=== PATIENT | female | born 1990 | race Caucasian/White ===

== ENCOUNTER 2017-03-19 14:34 | Inpatient (IN) | payer OTHER ==
[~2017-03-19] VITALS: Ht 160 cm; Wt 77.1 kg
[~2017-03-19 14:34] MED LIST: AMOX500C PO; PREN1CAP30 PO
[2017-03-19] MEDS ORDERED: SODIUM CHLORIDE 0.9% FLUSH 10 ML FLUSH IV FLUSH PRN (16:30)
[2017-03-19] MEDS ORDERED: ACETAMINOPHEN 325 MG TAB PO PRN (16:30)
[2017-03-19] MEDS ORDERED: ZOLPIDEM TARTRATE 5 MG TAB PO PRN (16:30)
[2017-03-19 17:40] LABS: AUTOMATED NEUTROPHIL # 6.1 TH/MM3 (1.8-7.7); BASOPHIL % 0.4 % (0.0-2.0); EOSINOPHIL % 0.3 % (0.0-4.0); HEMATOCRIT 30.6 % (35.0-46.0); LYMPH % 17.7 % (9.0-44.0); LYMPHOCYTE # 1.4 TH/MM3 (1.0-4.8); MEAN CELL VOLUME 77.4 FL (80.0-100.0); MEAN CORPUSCULAR HEMOGLOBIN 24.1 PG (27.0-34.0); MEAN CORPUSCULAR HGB CONC 31.2 % (32.0-36.0); MONO % 4.6 % (0.0-8.0); PLATELET COUNT 211 TH/MM3 (150-450); RED BLOOD COUNT 3.96 MIL/MM3 (4.00-5.30); RED CELL DISTRIBUTION WIDTH 15.7 % (11.6-17.2); WHITE BLOOD COUNT 7.9 TH/MM3 (4.0-11.0)
[2017-03-19 17:46] LABS: HEMO FLAGS AUTO DIFF
[2017-03-19 18:06] LABS: BACTERIA, URINE OCC /hpf; BLOOD, URINE NEG (NEG); COMMENT (UR) CULT NOT INDICATED; CULTURE IF INDICATED CULT NOT INDICATED; GLUCOSE,URINE NEG (NEG); KETONE, URINE NEG (NEG); MUCUS URINE FEW /lpf (OCC); NITRITE,URINE NEG (NEG); PH, URINE 7.5 (5.0-8.5); SQUAMOUS EPITHELIAL CELL URINE 4 /hpf (0-5); URINE COLOR YELLOW (YELLW/STRAW)
[2017-03-19 18:59] LABS: SCAN/DIFF AUTO DIFF CONFIRMED
--- NOTE | 2017-03-19 19:59 | HHI.HP ---
HPI Chief Complaint Low fluid Date Seen: March 19, 2017 Travel History International Travel<30 Days: No Contact w/Intl Traveler<30Days: No History of Present Illness HPI This is a 26y/o at 38w who presented to her routine OB visit today. Due to lapse of care and ultrasound was performed for well being, LUIS ENRIQUE was 0, fetus was breech, pt was sent to the [facility] for evaluation. Pt denies vaginal bleeding or leakage of fluid with reports of active movements. She is concerned about the weight and would like to wait to deliver the baby. [facility], complicated by: 1. late care at 14 w 2. lapse of care, moved to [facility] for a family emergency and did not receive care, No care from 14-35w 3. Previous c/s times 1 4. Breech presenting fetus 5. Rubella non-immune 6. Anemia affection 9.05/04 Para: 1 : 3 Miscarriage: 1 History Past Medical History Medical History: Denies Significant Hx Obstetric History Obstetric History 09/02/10 41.5w Primary c/s for NRFHT Male [id number] Past Surgical History Narrative Surgical C/s times 1 Family History Family History: Negative Social History Alcohol Use: No Tobacco Use: No Substance Abuse: No Allergies-Medications (Allergen,Severity, Reaction): Coded Allergies: No Known Allergies (Verified , 03/19/17) Home Meds Active Scripts Without A W/Fe Fum-Fe (Provida Dha 16-16-1.25-110 mg)1 Cap Cap1 Tab PO DAILY #30 BOTTLE Ref 11 Prov:Jessica Koch CNM [facility] 02/28/17 Discontinued Scripts Amoxicillin 500 Mg [id number] Mg PO TID #21 CAP Ref 21 Prov:James Emanuel MD 03/05/17 W/O A W/ Fe Asparto G (Prenate Pixie 10-0.6-0.4-200 mg)1 Cap Cap Sample #3 Prov:Jessica Koch CNM [facility] 10/02/16 Review of Systems Except as stated in HPI: all other systems reviewed are Neg Physical Exam Narrative GENERAL: Well-nourished, well-developed patient. SKIN: Warm and dry. HEAD: Normocephalic and atraumatic. EYES: No scleral icterus. No injection or drainage. ENT: No nasal drainage noted. Mucous membranes pink. Airway patent. NECK: Supple, trachea midline. No JVD. CARDIOVASCULAR: Regular rate and rhythm without murmurs, gallops, or rubs. RESPIRATORY: Breath sounds equal bilaterally. No accessory muscle use. BREASTS: Bilateral exam showed no masses , no retractions, no nipple discharge. ABDOMEN/GI: Abdomen soft, non-tender, bowel sounds present, no rebound, no guarding Fundal Height: 36 GENITOURINARY: VE deferred FHT's: Category: 1 Contractions: None EXTREMITIES: No cyanosis or edema. BACK: Nontender without obvious deformity. No CVA tenderness. NEUROLOGICAL: Awake and alert. Motor and sensory grossly within normal limits. Five out of 5 muscle strength in all muscle groups. Normal speech. Data Data Vital Signs Reviewed: Yes Orders Ob (2e) Additional Admit Info (03/19/17 14:46) Place In Observation (03/19/17 ) Diet Npo (03/19/17 Dinner) Vital Signs (Adult) MIGUEL [id number] AWAKE (03/19/17 16:26) Heart (03/19/17 16:26) Activity Oob Ad Sherice (03/19/17 16:26) Complete Blood Count With Diff (03/19/17 16:26) Urinalysis - C+S If Indicated (03/19/17 16:26) Acetaminophen (Tylenol) (03/19/17 16:30) Sodium Chloride 0.9% Flush (Ns Flush) (03/19/17 21:00) Sodium Chloride 0.9% Flush (Ns Flush) (03/19/17 16:30) Zolpidem (Ambien) (03/19/17 16:30) Specimen To Be Collected PRN (03/19/17 16:26) Labs Laboratory Tests Test 03/19/17 03/19/17 15:00 17:06 Urine Color YELLOW Urine Turbidity CLEAR Urine pH 7.5 Urine Specific [place] 1.005 Urine Protein NEG Urine Glucose (UA) NEG Urine Ketones NEG Urine Occult Blood NEG Urine Nitrite NEG Urine Bilirubin NEG Urine Urobilinogen LESS THAN 2.0 Urine Leukocyte Esterase SMALL Urine RBC LESS THAN 1 Urine WBC 1 Urine Squamous Epithelial 4 Cells Urine Bacteria OCC Urine Mucus FEW Urine Yeast (Budding) A Microscopic Urinalysis Comment CULT NOT INDICATED White Blood Count 7.9 Red Blood Count 3.96 Hemoglobin 9.6 Hematocrit 30.6 Mean Corpuscular Volume 77.4 Mean Corpuscular Hemoglobin 24.1 Mean Corpuscular Hemoglobin 31.2 Concent Red Cell Distribution Width 15.7 Platelet Count 211 Mean Platelet Volume 8.8 Neutrophils (%) (Auto) 77.0 Lymphocytes (%) (Auto) 17.7 Monocytes (%) (Auto) 4.6 Eosinophils (%) (Auto) 0.3 Basophils (%) (Auto) 0.4 Neutrophils # (Auto) 6.1 Lymphocytes # (Auto) 1.4 Monocytes # (Auto) 0.4 Eosinophils # (Auto) 0.0 Basophils # (Auto) 0.0 CBC Comment AUTO DIFF Differential Comment AUTO DIFF CONFIRMED Assessment/Plan Problem List: (1) Oligohydramnios in rodrigues in third trimester (2) 38 weeks gestation of (3) Insufficient care in third trimester Assessment and Plan 26y/o at 38w with LUIS ENRIQUE 0, breech presenting fetus, previous c/s times 1 with Anemia (). -records reviewed, well dated despite insufficient care -admit for c/s in AM -d/w pt and FOB, they have concerns about the weight and gestational age -counseled that due to SGA, per their report, and oligohydramnios there are 2 indications for delivery -will give IVF overnight and plan for c/s in AM -will do ultrasound in AM to check LUIS ENRIQUE -NPO -preop labs Hilda Cordova MD March 19, 2017 19:59
[2017-03-19 20:06] VITALS: BP 113/59; PULSE 65; RESP 18; TEMP 98.3
[2017-03-19 20:10] VITALS: PULSE 79
[2017-03-19] MEDS ORDERED: SODIUM CHLORIDE 0.9% FLUSH 10 ML FLUSH IV FLUSH SCH (21:00)
[2017-03-19 21:25] LABS: AMPHETAMINE, URINE NEG (NEG); BARBITURATES, URINE NEG (NEG); COCAINE, URINE NEG (NEG)
[2017-03-19 22:52] VITALS: BP 116/73; PULSE 102
[2017-03-19 23:00] VITALS: RESP 18
[2017-03-20] VITALS (12 sets, daily range): BP systolic 93–121; BP diastolic 51–68; PULSE 18–74; RESP 18; TEMP 97.5–98.4; O2SAT 98–100
[2017-03-20] MEDS ORDERED: CITRIC ACID-SODIUM CITRATE LIQ 30 ML UDC ONE (07:30)
[2017-03-20] MEDS ORDERED: LACTATED RINGER'S 1000 ML INJ 1,000 ML IV ONE (07:31)
[2017-03-20] MEDS ORDERED: OXYTOCIN 10 UNIT/ML AMP ONE (07:34)
--- NOTE | 2017-03-20 07:39 | PD.OB.ANTE ---
Subjective Diagnosis: (1) Oligohydramnios in rodrigues in third trimester Diagnosis: Principal (2) 38 weeks gestation of Diagnosis: Secondary (3) Insufficient care in third trimester Interval History This is a 26y/o at 38w1d who was admitted yesterday with LUIS ENRIQUE of 0 on clinic ultrasound. Pt non-compliant with care, only 3 visits. First visit at 14 weeks, 2nd visit at 34minutes. While placing an IV pt noted to have multiple needle sadler on her arms, admitted to dilaudid IV use. Pt declined c/s, but agreed to repeat LUIS ENRIQUE in am. Tracing Cat 1 overnight. LUIS ENRIQUE repeat now, still 0. Objective Vital Signs Vital Signs Date Time Temp Pulse Resp B/P Pulse Ox O2 Delivery O2 Flow Rate FiO2 03/19/17 23:00 18 03/19/17 22:52 102 116/73 03/19/17 20:10 79 03/19/17 20:06 98.3 65 18 113/59 Lab & Micro Results Test 03/19/17 03/19/17 03/19/17 15:00 17:06 21:10 Urine Color YELLOW Urine Turbidity CLEAR Urine pH 7.5 Urine Specific [place] 1.005 Urine Protein NEG mg/dL Urine Glucose (UA) NEG mg/dL Urine Ketones NEG mg/dL Urine Occult Blood NEG Urine Nitrite NEG Urine Bilirubin NEG Urine Urobilinogen LESS THAN 2.0 MG/DL Urine Leukocyte Esterase SMALL Urine RBC LESS THAN 1 /hpf Urine WBC 1 /hpf Urine Squamous Epithelial 4 /hpf Cells Urine Bacteria OCC /hpf Urine Mucus FEW /lpf Urine Yeast (Budding) A Microscopic Urinalysis Comment CULT NOT INDICATED Urine Opiates Screen POS Urine Barbiturates Screen NEG Urine Amphetamines Screen NEG Urine Benzodiazepines Screen NEG Urine Cocaine Screen NEG Urine Cannabinoids Screen NEG White Blood Count 7.9 TH/MM3 Red Blood Count 3.96 MIL/MM3 Hemoglobin 9.6 GM/DL Hematocrit 30.6 % Mean Corpuscular Volume 77.4 FL Mean Corpuscular Hemoglobin 24.1 PG Mean Corpuscular Hemoglobin 31.2 % Concent Red Cell Distribution Width 15.7 % Platelet Count 211 TH/MM3 Mean Platelet Volume 8.8 FL Neutrophils (%) (Auto) 77.0 % Lymphocytes (%) (Auto) 17.7 % Monocytes (%) (Auto) 4.6 % Eosinophils (%) (Auto) 0.3 % Basophils (%) (Auto) 0.4 % Neutrophils # (Auto) 6.1 TH/MM3 Lymphocytes # (Auto) 1.4 TH/MM3 Monocytes # (Auto) 0.4 TH/MM3 Eosinophils # (Auto) 0.0 TH/MM3 Basophils # (Auto) 0.0 TH/MM3 CBC Comment AUTO DIFF Differential Comment AUTO DIFF CONFIRMED Blood Type A POSITIVE Band and Hold HOLD CLOT IN BB Physical Exam GENERAL: Well-nourished, well-developed patient. CARDIOVASCULAR: Regular rate and rhythm without murmurs, gallops, or rubs. RESPIRATORY: Breath sounds equal bilaterally. No accessory muscle use. ABDOMEN/GI: Abdomen soft, non-tender. Fundus: 36w GENITOURINARY: External Genitalia: deferred Contractions: + irritability FHT's: Category: 1 EXTREMITIES: No cyanosis or edema, non-tender, without signs of DVT. Assessment and Plan Problem List: (1) Oligohydramnios in rodrigues in third trimester Status: Acute (2) 38 weeks gestation of Status: Acute (3) Insufficient care in third trimester Status: Acute Assessment and Plan 26y/o at 38w with LUIS ENRIQUE 0, breech presenting fetus, previous c/s times 1 with Anemia (9.6/30). -records reviewed, well dated despite insufficient care -LUIS ENRIQUE still 0 -Preop Now -d/w Dr. Morfin: HIV, HepC and maternal echo ordered; TAP recommended for post delivery -Case management consult placed, will set up "Healthy start" program -pt will f/u with Dr. Morfin as outpatient for Suboxone management -counseled about risks of surgery and what to expect, pt agreeable to surgery Hilda Cordova MD March 20, 2017 07:38
--- NOTE | 2017-03-20 07:46 | PD.OB.ANTE ---
Subjective Diagnosis: (1) Oligohydramnios in rodrigues in third trimester Diagnosis: Principal (2) 38 weeks gestation of (3) Insufficient care in third trimester Interval History Patient resting comfortably. She denies any signs/symptoms of opioid withdrawal. On further history, she admits to starting opioid use with oxycodone after high school. She then progressed to Dilaudid, up to 40mg IV daily. She also has been using Suboxone 1/2 tab occasionally. She states her last use was 2 days ago. She also smokes tobacco and drinks caffeine frequently. She states that she does not share needles and she injects herself. She states that she had others injecting for her several years ago. She is unsure if she has hepatis C. The father of the baby also uses IV Dilaudid and has been poorly compliant with rehabilitation services. They both express a desire to quit. Antepartum ROS: Reports: movement normal, Denies: New complaints, Loss of fluid, Vaginal bleeding, Contractions ( Bessie Lorenzo MD R2) Objective Vital Signs Vital Signs Date Time Temp Pulse Resp B/P Pulse Ox O2 Delivery O2 Flow Rate FiO2 03/19/17 23:00 18 03/19/17 22:52 102 116/73 03/19/17 20:10 79 03/19/17 20:06 98.3 65 18 113/59 Lab & Micro Results Test 03/19/17 03/19/17 03/19/17 15:00 17:06 21:10 Urine Color YELLOW Urine Turbidity CLEAR Urine pH 7.5 Urine Specific [place] 1.005 Urine Protein NEG mg/dL Urine Glucose (UA) NEG mg/dL Urine Ketones NEG mg/dL Urine Occult Blood NEG Urine Nitrite NEG Urine Bilirubin NEG Urine Urobilinogen LESS THAN 2.0 MG/DL Urine Leukocyte Esterase SMALL Urine RBC LESS THAN 1 /hpf Urine WBC 1 /hpf Urine Squamous Epithelial 4 /hpf Cells Urine Bacteria OCC /hpf Urine Mucus FEW /lpf Urine Yeast (Budding) A Microscopic Urinalysis Comment CULT NOT INDICATED Urine Opiates Screen POS Urine Barbiturates Screen NEG Urine Amphetamines Screen NEG Urine Benzodiazepines Screen NEG Urine Cocaine Screen NEG Urine Cannabinoids Screen NEG White Blood Count 7.9 TH/MM3 Red Blood Count 3.96 MIL/MM3 Hemoglobin 9.6 GM/DL Hematocrit 30.6 % Mean Corpuscular Volume 77.4 FL Mean Corpuscular Hemoglobin 24.1 PG Mean Corpuscular Hemoglobin 31.2 % Concent Red Cell Distribution Width 15.7 % Platelet Count 211 TH/MM3 Mean Platelet Volume 8.8 FL Neutrophils (%) (Auto) 77.0 % Lymphocytes (%) (Auto) 17.7 % Monocytes (%) (Auto) 4.6 % Eosinophils (%) (Auto) 0.3 % Basophils (%) (Auto) 0.4 % Neutrophils # (Auto) 6.1 TH/MM3 Lymphocytes # (Auto) 1.4 TH/MM3 Monocytes # (Auto) 0.4 TH/MM3 Eosinophils # (Auto) 0.0 TH/MM3 Basophils # (Auto) 0.0 TH/MM3 CBC Comment AUTO DIFF Differential Comment AUTO DIFF CONFIRMED Blood Type A POSITIVE Band and Hold HOLD CLOT IN BB Physical Exam GENERAL: Well-nourished, well-developed patient. CARDIOVASCULAR: Regular rate and rhythm without murmurs, gallops, or rubs. RESPIRATORY: Breath sounds equal bilaterally. No accessory muscle use. ABDOMEN/GI: Abdomen soft, non-tender. Fundus: 38 GENITOURINARY: External Genitalia: intact and normal in appearance Presentation: breech Membranes: intact Uterine Contractions: none FHT's: Category: I Baseline: 120 Reactive: + Variability: moderate Decels: none EXTREMITIES: No cyanosis or edema, non-tender, without signs of DVT. (Bessie Lorenzo MD R2) Assessment and Plan Problem List: (1) Oligohydramnios in rodrigues in third trimester Status: Acute (2) 38 weeks gestation of Status: Acute (3) Insufficient care in third trimester Status: Acute Assessment and Plan 26y/o at 38-1/7 weeks gestation with LUIS ENRIQUE 0, breech presenting fetus, previous c/s times 1 with Anemia (9.6/30). 1. Category I tracing, reassuring. 2. Oligohydramnios- LUIS ENRIQUE 0 on bedside US this AM 3. Records reviewed, well dated despite insufficient care 4. Repeat this am 5. History of Substance abuse including IV Dilaudid, caffeine, and tobacco seen and discussed with Dr. Cordova and Dr. Morfin at bedside (Bessie Lorenzo MD R2) Assessment and Plan Agree with above. Ordered: Echo, HIV, HepC, artist's manager full utox pending. (Hilda Cordova MD) Bessie Lorezno MD R2 March 20, 2017 07:46 Hilda Cordova MD March 20, 2017 09:48
[2017-03-20] MEDS ORDERED: LACTATED RINGER'S 1000 ML INJ 1,000 ML IV SCH ×2 (08:01→14:07)
[2017-03-20] MEDS ORDERED: ceFAZolin 2 GM PREMIX 50 ML IV SCH (08:45)
[2017-03-20 08:47] LABS: BLOOD GAS BASE EXCESS -3.1 mmol/L (-2-2); BLOOD GAS O2 HGB SATURATION 11 % (90-100); CORD BLOOD GAS HCO3 24 mmol/L (21-29); CORD BLOOD GAS PCO2 60 mmHG (34-78); CORD BLOOD GAS PH 7.22 (7.14-7.42); CORD BLOOD GAS PO2 16 mmHG (3.0-40.0); DRAW SITE CORD BLOOD; STAT NO
[2017-03-20] MEDS ORDERED: oxyCODONE/ACETAMINOPHEN 5 MG/325 MG TAB PO PRN (09:15)
[2017-03-20] MEDS ORDERED: ACETAMINOPHEN 325 MG TAB PO PRN (09:15)
[2017-03-20] MEDS ORDERED: ONDANSETRON HCL 4 MG/2 ML VIAL IV PUSH PRN (09:15)
[2017-03-20] MEDS ORDERED: ZOLPIDEM TARTRATE 5 MG TAB PO PRN (09:15)
[2017-03-20] MEDS ORDERED: SIMETHICONE 80 MG CHEWABLE TAB PO PRN (09:15)
[2017-03-20] MEDS ORDERED: KETOROLAC TROMETHAMINE 60 MG/2 ML (IM) VIAL IM PRN ×2 (09:15→15:00)
[2017-03-20] MEDS ORDERED: SODIUM CHLORIDE 0.9% FLUSH 10 ML FLUSH IV FLUSH PRN (09:15)
[2017-03-20] MEDS ORDERED: CITRIC ACID-SODIUM CITRATE LIQ 30 ML UDC PO SCH (09:15)
[2017-03-20] MEDS ORDERED: OXYTOCIN 30 UNITS-500ML PREMIX 500 ML IV ONE (09:15)
[2017-03-20] MEDS ORDERED: DOCUSATE SODIUM 50 MG/SENNA 8.6 MG TAB PO PRN (09:15)
[2017-03-20] MEDS ORDERED: ROPIVACAINE 0.5% PF INJ 30 ML VIAL NERV BLOCK ONE (09:38)
[2017-03-20] MEDS ORDERED: ONDANSETRON HCL 4 MG/2 ML VIAL ONE (09:45)
[2017-03-20] MEDS ORDERED: MORPHINE SULFATE PF 5 MG/10 ML VIAL ONE (09:45)
--- NOTE | 2017-03-20 09:48 | PD.OP ---
Operative Report Date of Surgery: March 20, 2017 Preoperative Diagnosis: (1) 38 weeks gestation of (2) Insufficient care in third trimester (3) Oligohydramnios in rodrigues in third trimester (4) Breech presentation delivered Postoperative Diagnosis: (1) 38 weeks gestation of (2) Insufficient care in third trimester (3) Oligohydramnios in rodrigues in third trimester (4) Breech presentation delivered Procedure: Repeat Delivery Surgeon: Hilda Cordova Senior Care Manager(s): Karen Haile EDUCATION TEACHER Resident Surgeon: Bessie Lorenzo Operation and Findings: Findings: female , 8/9 EFW 2375g Normal, intact placenta with 3 vessel cord Normal uterus Normal tubes and ovaries bilaterally After informed consent was obtained the patient was taken to the operating room where her spinal anesthesia was found to be adequate. A kumar catheter was placed and she was then prepared and draped in the normal sterile fashion in the dorsal supine position with a leftward tilt. A Pfannenstiel/midline skin incision was then made with the scalpel and carried through to the underlying layer of fascia. The fascia was incised in the midline and extended laterally with the Guajardo scissors. The incision was then grasped with the Alexander clamps, elevated and the underlying rectus muscles dissected off bluntly/sharply with the Guajardo scissors. Attention was then turned to the inferior aspect of this incision which, in a similar fashion, was grasped, tented up with the Alexander clamps, and the rectus muscles dissected off bluntly/sharply with the Guajardo scissors. The rectus muscles were then in the midline, and the peritoneum identified, tented up, and entered bluntly using manual dissection. The peritoneal incision was then extended superiorly and inferiorly with good visualization of the bladder. The bladder blade was then inserted and the lower uterine segment was incised in a transverse fashion with the scalpel. The uterine incision was then extended laterally digitally. The bladder blade was removed then the 's head delivered atraumatically. The cord clamped and cut and the was handed off the field to the awaiting baby nurse. The placenta was then removed, the uterus exteriorized, and cleared of all clots and debris. The uterine incision was repaired with 0 Monocryl in a running, locked fashion. A second layer of the same suture was used in an imbricating fashion to obtain excellent hemostasis. The abdominal cavity was cleaned with a moist lap and the uterus was replaced into the abdomen. The gutters were cleared of all clots and debris the hysterotomy site was noted to be hemostatic. The peritoneum was closed with 2-0 Vicryl in a running fashion. The fascia was then reapproximated with 0 Vicryl in a running fashion. The subcutaneous tissue was closed with 3-0 chromic the skin was closed with 4-0 in a subcuticular fashion noting excellent hemostasis. Dermabond was placed along the length of the incision. The patient tolerated the procedure well. Sponge, lap and needle counts were correct times two. The patient was taken to the recovery room in stable condition. Hilda Cordova MD March 20, 2017 09:47
[2017-03-20] MEDS ORDERED: EPIDURAL-NALOXONE HCL 0.4 MG/ML AMP IV PRN (11:30)
[2017-03-20] MEDS ORDERED: EPIDURAL-DO NOT ADMINISTER ANTICOAGULANTS PRN (11:30)
[2017-03-20] MEDS ORDERED: EPIDURAL-DIPHENHYDRAMINE HCL 50 MG CAP PO PRN (11:30)
[2017-03-20] MEDS ORDERED: EPIDURAL-NO SYSTEMIC NARCOTICS PRN (11:30)
[2017-03-20] MEDS ORDERED: EPIDURAL-DIPHENHYDRAMINE HCL 50 MG/ML VIAL IV PUSH PRN (11:30)
--- NOTE | 2017-03-20 19:01 | ECHLIM ---
Study Study Date:03/20/2017 STUDY CONCLUSIONS SUMMARY - Left ventricle: The cavity size was normal. Wall thickness was normal. Systolic function was vigorous. The estimated ejection fraction was in the range of 65% to 70%. Wall motion was normal; there were no regional wall motion abnormalities. - Aortic valve: Valve area: 1.88cm^2(VTI). Valve area: 2.04cm^2 (Vmax). - Pulmonary arteries: PA peak pressure: 32mm Hg (S). If LV function is below 40, please consider prescribing an ACEI or ARB or document rationale for non-use. PROCEDURE DATA STUDY STATUS: Elective. Procedure: Transthoracic echocardiography. Image quality was good. Scanning was performed from the parasternal, apical, and subcostal acoustic windows. Study completion: The patient tolerated the procedure well. Transthoracic echocardiography. M-mode, complete 2D, complete spectral Doppler, and color Doppler. Height: Height: 63in. Weight: Weight: 169.6lb. Body mass index: BMI: 30.1kg/m^2. Body surface area: BSA: 1.8m^2. Patient status: Inpatient. CARDIAC ANATOMY LEFT VENTRICLE: The cavity size was normal. Wall thickness was normal. Systolic function was vigorous. The estimated ejection fraction was in the range of 65% to 70%. Wall motion was normal; there were no regional wall motion abnormalities. AORTIC VALVE: Trileaflet; normal thickness leaflets. Doppler: Transvalvular velocity was within the normal range. There was no stenosis. No regurgitation. Valve area: 1.88cm^2(VTI). Indexed valve area: 1.04cm^2/m^2 (VTI). Valve area: 2.04cm^2 (Vmax). Indexed valve area: 1.13cm^2/m^2 (Vmax). Mean gradient: 8mm Hg (S). Peak gradient: 15mm Hg (S). AORTA: Aortic root: The aortic root was normal in size. MITRAL VALVE: Structurally normal valve. Doppler: Transvalvular velocity was within the normal range. There was no evidence for stenosis. Trace regurgitation. Peak gradient: 5mm Hg (D). LEFT ATRIUM: The atrium was normal in size. RIGHT VENTRICLE: The cavity size was normal. Wall thickness was normal. PULMONIC VALVE: Doppler: Transvalvular velocity was within the normal range. There was no evidence for stenosis. No regurgitation. TRICUSPID VALVE: Structurally normal valve. Doppler: Transvalvular velocity was within the normal range. Trace to mild regurgitation. PULMONARY ARTERY: The main pulmonary artery was normal-sized. Systolic pressure was within the normal range. RIGHT ATRIUM: The atrium was normal in size. PERICARDIUM: There was no pericardial effusion. SYSTEMIC VEINS: Inferior vena cava: The vessel was normal in size. Patient weight: 169.6lb _Ejection fraction:_ 65-75% _Fractional shortening:_ 32% up to 5Kg 5-11.5Kg 11.6-22.9Kg 23-45Kg 45-57Kg Aortic Root 7-13 <17 13-22 17-27 17-27 LA diam 6-13 <23 24-38 33-47 37-40 RVID 10-17 7-15 7-15 7-18 8-17 LVIDd 12-22 <32 24-38 33-47 37-40 LVPW 2-4 3-6 5-7 6-8 7-8 IVS 2-4 3-6 5-7 6-8 7-8 BASIC MEASUREMENTS ADULT NORMAL Left ventricle LV internal dimension, ED, chordal 51.8 mm 43-52 level, PLAX LV internal dimension, ES, chordal 34.8 mm 23-38 level, PLAX Fractional shortening, chordal level, 33 % >29 PLAX LV posterior wall thickness, ED 6.92 mm IVS/LVPW ratio, ED 1 <1.3 Ventricular septum Septal thickness, ED 6.92 mm Aortic valve Leaflet separation 23 mm 15-26 Aorta Root diameter, ED 28 mm Left atrium Anterior-posterior dimension 38 mm Anterior-posterior dimension index 2.11 cm/m^2 <2.2 BASIC MEASUREMENTS ADULT NORMAL Aortic valve Leaflet separation 23 mm 15-26 DOPPLER MEASUREMENTS ADULT NORMAL Main pulmonary artery Pressure, S *32 mm Hg =30 Aortic valve Peak velocity, S 196 cm/s Mean velocity, S 130 cm/s VTI, S 48.1 cm Mean gradient, S 8 mm Hg Peak gradient, S 15 mm Hg Valve area, VTI 1.88 cm^2 Valve area index, VTI 1.04 cm^2/m^2 Valve area, Vmax 2.04 cm^2 Valve area index, Vmax 1.13 cm^2/m^2 Mitral valve Peak E-wave velocity 110 cm/s Peak A-wave velocity 29.1 cm/s Deceleration time 222 ms 150-230 Peak gradient, D 5 mm Hg Peak E/A ratio 3.8 Tricuspid valve Regurgitant peak velocity 250 cm/s Peak RV-RA gradient, S 25 mm Hg Maximal regurgitant velocity 250 cm/s Systemic veins Estimated CVP 10 mm Hg Right ventricle RV pressure, S *35 mm Hg <30 Pulmonic valve Peak velocity, S 81.2 cm/s LEGEND: Mean values are shown as u=mean value. Asterisk (*) sadler values outside specified normal range. Prepared and signed by Paige Perez [id number]
[2017-03-20] MEDS ORDERED: OXYTOCIN 30 UNITS-500ML PREMIX 500 ML IV PRN (19:15)
[2017-03-20] MEDS: oxyCODONE/ACETAMINOPHEN 5 MG/325 MG TAB PO PRN (22:19)
[2017-03-21] MEDS: oxyCODONE/ACETAMINOPHEN 5 MG/325 MG TAB PO PRN ×4 (05:33→19:37)
[2017-03-21 05:56] LABS: BASOPHIL % 0.4 % (0.0-2.0); EOSINOPHIL # 0.1 TH/MM3 (0-0.4); HEMATOCRIT 27.1 % (35.0-46.0); LYMPH % 20.8 % (9.0-44.0); LYMPHOCYTE # 2.3 TH/MM3 (1.0-4.8); MEAN CELL VOLUME 76.6 FL (80.0-100.0); MEAN CORPUSCULAR HEMOGLOBIN 24.8 PG (27.0-34.0); MEAN CORPUSCULAR HGB CONC 32.3 % (32.0-36.0); MONO % 6.6 % (0.0-8.0); NEUT % 71.2 % (16.0-70.0); PLATELET COUNT 158 TH/MM3 (150-450); RED BLOOD COUNT 3.53 MIL/MM3 (4.00-5.30); RED CELL DISTRIBUTION WIDTH 14.8 % (11.6-17.2); WHITE BLOOD COUNT 11.2 TH/MM3 (4.0-11.0)
[2017-03-21 06:08] LABS: HEMO FLAGS AUTO DIFF
[2017-03-21 07:10] LABS: OVALOCYTES 1+ (NORMAL); SCAN/DIFF AUTO DIFF CONFIRMED
--- NOTE | 2017-03-21 07:54 | HHI.OB ---
Subjective Post Operative Day: 1 Remarks Patient is a 26-year-old delivered at 38 weeks and 1 day. Patient is day 1 after . Patient's pain is currently a 4 out of 10, but mostly well-controlled by medication. Patient reports eating and drinking without any nausea or vomiting. Patient reports "pretty bad but not terrible " bleeding. Patient has passed gas but no bowel movements. Patient is walking without lower extremity pain or shortness of breath. Patient doesn't know if she wants contraception and is bottle feeding. (Charles Collazo MD R1) Objective Vitals/I&O Vital Signs Date Time Temp Pulse Resp B/P Pulse Ox O2 Delivery O2 Flow Rate FiO2 03/20/17 15:00 98.4 52 18 98 03/20/17 15:00 18 116/68 03/20/17 10:45 18 03/20/17 10:45 97.7 52 100 03/20/17 10:45 98/58 03/20/17 10:45 18 03/20/17 10:31 121/65 03/20/17 10:31 97.5 51 18 100 03/20/17 10:15 61 18 119/67 100 03/20/17 10:02 62 18 100 03/20/17 10:02 112/58 03/20/17 09:53 100 03/20/17 09:53 74 18 121/60 03/20/17 09:33 64 18 100 03/20/17 09:33 100/58 03/20/17 09:23 49 18 93/51 99 03/20/17 09:12 50 18 109/58 99 03/20/17 09:12 97.6 (Charles Collazo MD R1) Result Diagram: 03/21/17 0502 Objective Remarks GENERAL: Well-nourished, well-developed patient. CARDIOVASCULAR: Regular rate and rhythm without murmurs, gallops, or rubs. RESPIRATORY: Breath sounds equal bilaterally. No accessory muscle use. ABDOMEN/GI: Abdomen soft, non-tender, bowel sounds present. Incision: Clean, dry and intact. Fundus: Firm, non-tender at umbilicus. GENITOURINARY: Light to moderate bleeding. EXTREMITIES: No cyanosis or edema, non-tender, without signs of DVT. Medications and IVs Current Medications Medications (Trade) Dose Ordered Sig/Sheree Route Start Time Stop Time Status Last Admin (Lr 1000 ml Inj) 1,000 ml @ 100 mls/hr Q10H IV 03/20/17 14:07 03/21/17 10:06 (NS Flush) 2 ml BID IV FLUSH 03/20/17 21:00 (NS Flush) 2 ml UNSCH PRN IV FLUSH 03/20/17 09:15 (Mylicon Chew) 80 mg QID PRN PO 03/20/17 09:15 (Tylenol) 650 mg Q6H PRN PO 03/20/17 09:15 (Motrin) 600 mg Q6H PRN PO 03/20/17 09:15 (Toradol Inj) 30 mg Q6H PRN IM 03/20/17 15:00 03/21/17 14:59 03/21/17 00:31 (Percocet 5-325 Mg) 1 tab Q4H PRN PO 03/20/17 09:15 (Percocet 5-325 Mg) 2 tab Q4H PRN PO 03/20/17 09:15 03/21/17 05:33 (Edilma-Colace) 2 tab Q12H PRN PO 03/20/17 09:15 (Ambien) 5 mg HS PRN PO 03/20/17 09:15 (M-M-R Ii Inj) 0.5 ml ONCE ONCE SQ 03/21/17 16:00 03/21/17 16:01 (Boostrix Inj) 0.5 ml ONCE ONCE IM 03/21/17 16:00 03/21/17 16:01 03/21/17 05:35 (Zofran Inj) 4 mg Q6H PRN IV PUSH 03/20/17 09:15 Miscellaneous Information NO SYSTEMIC NARCOTICS TO BE GIVEN FO... UNSCH PRN .XX 03/20/17 11:30 03/21/17 11:29 (Narcan Inj) 0.4 mg UNSCH PRN IV 03/20/17 11:30 03/21/17 11:29 (Benadryl Inj) 25 mg Q6H PRN IV PUSH 03/20/17 11:30 03/21/17 11:29 (Benadryl) 50 mg Q6H PRN PO 03/20/17 11:30 03/21/17 11:29 Miscellaneous Information ALL NURSING DEPARTMENTS UNSCH PRN .XX 03/20/17 11:30 03/21/17 11:29 (Charles Collazo MD R1) Assessment/Plan Problem List: (1) Oligohydramnios in rodrigues in third trimester (2) 38 weeks gestation of (3) Insufficient care in third trimester Assessment and Plan 26 y/o female with h/o IVDU who is POD# 1 s/p . -Continue routine postop care. -Percocet and Motrin PRN pain. -Encouraged OOB. Advised pelvic rest for 6 wks. Recommended 1 week incision check in 6 week follow-up. -she doesn't know if she wants prescription control at this time; will continue to ask -Anticipate discharge in 2 days. -Echo showed normal LV size, wall thickness, wall motion, systolic function, EF 65% to 70%, no evidence of any vegetations. -HIV negative, HepC antibody reactive, ordered hep C RNA quant -professional development manager consulted and appreciated -full utox positive for opiates, otherwise negative or pending. dw Dr. Uziel MD Discharge Planning Anticipate discharge in 2 days. (Charles Collazo MD R1) Collaborating MD Comments Patient seen, assessment reviewed. Agree with plan of care. (Margarita Triplett MD) Charles Collazo MD R1 March 21, 2017 07:54 Margarita Triplett MD March 21, 2017 09:48
[2017-03-21 07:55] VITALS: BP 113/76; PULSE 60; RESP 18; TEMP 97.8
[2017-03-21] MEDS: IBUPROFEN 600 MG TAB PO PRN ×3 (08:10→19:37)
[2017-03-21] MEDS: SODIUM CHLORIDE 0.9% FLUSH 10 ML FLUSH IV FLUSH SCH (09:00)
[2017-03-21] MEDS ORDERED: MEASLES, MUMPS, RUBELLA VACCINE 0.5 ML VIAL SQ ONE (16:00)
[2017-03-21] MEDS ORDERED: DIPHTH/TETANUS/ACEL PERTUSSIS (BOOSTER) 0.5 ML VIAL/PFS IM ONE (16:00)
[2017-03-21 19:18] VITALS: BP 109/67; PULSE 61; RESP 15; TEMP 97.9
[2017-03-22] MEDS: oxyCODONE/ACETAMINOPHEN 5 MG/325 MG TAB PO PRN ×4 (02:49→21:40)
[2017-03-22] MEDS: IBUPROFEN 600 MG TAB PO PRN ×4 (02:49→21:42)
--- NOTE | 2017-03-22 08:22 | HHI.OB ---
Subjective Remarks Patient is a 26-year-old delivered at 38 weeks and 1 day. Patient is day 2 after . Patient's pain is currently a 4 out of 10, but mostly well-controlled by medication. Patient reports eating and drinking without any nausea or vomiting. 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 Patient has passed gas and bowel movements. Patient is walking without lower extremity pain or shortness of breath. Patient expressed a desire for oral contraception pills and is bottle feeding. (Charles Collazo MD R1) Objective Vitals/I&O Vital Signs Date Time Temp Pulse Resp B/P Pulse Ox O2 Delivery O2 Flow Rate FiO2 03/21/17 19:18 97.9 61 15 109/67 (Charles Collazo MD R1) Result Diagram: 03/21/17 0502 Objective Remarks GENERAL: Well-nourished, well-developed patient. CARDIOVASCULAR: Regular rate and rhythm without murmurs, gallops, or rubs. RESPIRATORY: Breath sounds equal bilaterally. No accessory muscle use. ABDOMEN/GI: Abdomen soft, non-tender, bowel sounds present. Incision: Clean, dry and intact. Fundus: Firm, non-tender at umbilicus. GENITOURINARY: Light to moderate bleeding. EXTREMITIES: No cyanosis or edema, non-tender, without signs of DVT. Medications and IVs Current Medications Medications (Trade) Dose Ordered Sig/Sheree Route Start Time Stop Time Status Last Admin (NS Flush) 2 ml BID IV FLUSH 03/20/17 21:00 (NS Flush) 2 ml UNSCH PRN IV FLUSH 03/20/17 09:15 (Mylicon Chew) 80 mg QID PRN PO 03/20/17 09:15 (Tylenol) 650 mg Q6H PRN PO 03/20/17 09:15 (Motrin) 600 mg Q6H PRN PO 03/20/17 09:15 03/22/17 02:49 (Percocet 5-325 Mg) 1 tab Q4H PRN PO 03/20/17 09:15 (Percocet 5-325 Mg) 2 tab Q4H PRN PO 03/20/17 09:15 03/22/17 02:49 (Edilma-Colace) 2 tab Q12H PRN PO 03/20/17 09:15 (Ambien) 5 mg HS PRN PO 03/20/17 09:15 (Zofran Inj) 4 mg Q6H PRN IV PUSH 03/20/17 09:15 (Charles Collazo MD R1) Assessment/Plan Problem List: (1) Oligohydramnios in rodrigues in third trimester (2) 38 weeks gestation of (3) Insufficient care in third trimester Assessment and Plan 26 y/o female with h/o IVDU who is POD# 2 s/p . -Continue routine postop care. -Percocet and Motrin PRN pain. -Encouraged OOB. Advised pelvic rest for 6 wks. Recommended 1 week incision check in 6 week follow-up. -she requested oral control pills at this time -Anticipate discharge tomorrow. -Echo showed normal LV size, wall thickness, wall motion, systolic function, EF 65% to 70%, no evidence of any vegetations. -HIV negative, HepC antibody reactive, hep C RNA quant pending. Discussed Hep C diagnosis with pt. Recommended follow up with GI specialist. -performing arts road manager consulted and appreciated -full utox positive for opiates, otherwise negative or pending. dw Dr. Karl MD Discharge Planning Anticipate discharge tomorrow. (Charles Collazo MD R1) Attending Attestation POD #2 s/p Patient with some variable pain control, opiate abuse/tolerance Reviewed anti-inflammatory medications, abd binder Hgb 8.8, asymptomatic Echo - wnl Hep C + social services coordinator consulted. Anticipate d/c in am Patient seen and examined. D/w Dr. Collazo and Dr. Min (Liz Barajas MD) Charles Collazo MD R1 March 22, 2017 08:22 Liz Barajas MD March 22, 2017 09:44
[2017-03-22 08:28] VITALS: BP 124/78; PULSE 51; RESP 14; TEMP 97.5
[2017-03-22] MEDS: SODIUM CHLORIDE 0.9% FLUSH 10 ML FLUSH IV FLUSH SCH (09:00)
[2017-03-23] MEDS: IBUPROFEN 600 MG TAB PO PRN ×2 (06:33→12:18)
[2017-03-23] MEDS: oxyCODONE/ACETAMINOPHEN 5 MG/325 MG TAB PO PRN ×2 (06:34→12:17)
--- NOTE | 2017-03-23 08:16 | HHI.OB ---
Subjective Post Operative Day: 3 Remarks Patient is a 26-year-old delivered at 38 weeks and 1 day. Patient is day 3 after . Patient's pain is currently a 4 out of 10, but mostly well-controlled by medication. Patient reports eating and drinking without any nausea or vomiting. Patient reports "not bad" bleeding today. Patient has passed gas and had bowel movements. Patient is walking without lower extremity pain or shortness of breath. Patient expressed a desire for oral contraception pills and is bottle feeding. (Charles Collazo MD R1) Objective Vitals/I&O Vital Signs Date Time Temp Pulse Resp B/P Pulse Ox O2 Delivery O2 Flow Rate FiO2 03/22/17 08:28 97.5 14 03/22/17 08:28 51 124/78 (Charles Collazo MD R1) Result Diagram: 03/21/17 0502 Objective Remarks GENERAL: Well-nourished, well-developed patient. CARDIOVASCULAR: Regular rate and rhythm without murmurs, gallops, or rubs. RESPIRATORY: Breath sounds equal bilaterally. No accessory muscle use. ABDOMEN/GI: Abdomen soft, non-tender, bowel sounds present. Incision: Clean, dry and intact. Fundus: Firm, non-tender below umbilicus. GENITOURINARY: Light bleeding. EXTREMITIES: No cyanosis or edema, non-tender, without signs of DVT. Medications and IVs Current Medications Medications (Trade) Dose Ordered Sig/Sheree Route Start Time Stop Time Status Last Admin (NS Flush) 2 ml BID IV FLUSH 03/20/17 21:00 (NS Flush) 2 ml UNSCH PRN IV FLUSH 03/20/17 09:15 (Mylicon Chew) 80 mg QID PRN PO 03/20/17 09:15 (Tylenol) 650 mg Q6H PRN PO 03/20/17 09:15 (Motrin) 600 mg Q6H PRN PO 03/20/17 09:15 03/23/17 06:33 (Percocet 5-325 Mg) 1 tab Q4H PRN PO 03/20/17 09:15 03/22/17 16:36 (Percocet 5-325 Mg) 2 tab Q4H PRN PO 03/20/17 09:15 03/23/17 06:34 (Edilma-Colace) 2 tab Q12H PRN PO 03/20/17 09:15 (Ambien) 5 mg HS PRN PO 03/20/17 09:15 (Zofran Inj) 4 mg Q6H PRN IV PUSH 03/20/17 09:15 (Charles Collazo MD R1) Assessment/Plan Problem List: (1) Oligohydramnios in rodrigues in third trimester (2) 38 weeks gestation of (3) Insufficient care in third trimester Assessment and Plan 26 y/o female with h/o IVDU who is POD# 3 s/p . -Continue routine postop care. -Percocet and Motrin PRN pain. -Encouraged OOB. Advised pelvic rest for 6 wks. Recommended 1 week incision check in 6 week follow-up. -she requested oral control pills at this time -Anticipate discharge today. -Echo showed normal LV size, wall thickness, wall motion, systolic function, EF 65% to 70%, no evidence of any vegetations. -HIV negative, HepC antibody reactive, hep C RNA quant pending. Discussed Hep C diagnosis with pt. Recommended follow up with GI specialist. -accounting office manager consulted and appreciated -full utox positive for opiates, otherwise negative or pending. dw Dr. Tasha MD Discharge Planning Anticipate discharge today. (Charles Collazo MD R1) Attending Attestation Pt seen and examined, agree with above. (Hilda Cordova MD) Charles Collazo MD R1 March 23, 2017 08:16 Hilda Cordova MD March 23, 2017 09:36
[2017-03-23] MEDS ORDERED: ACET325T PO (08:17)
[2017-03-23] MEDS ORDERED: IBUP-232 PO (08:17)
[2017-03-23] MEDS ORDERED: ORTH0.35 PO (08:17)
--- NOTE | 2017-03-23 08:19 | HHI.DCPOC ---
Discharge Care Plan Diagnosis: (1) 38 weeks gestation of (2) Oligohydramnios in rodrigues in third trimester (3) delivery delivered Report Symptoms to Your Doctor -Temperate above 100.5 degrees -Redness, of incision or excessive or foul smelling drainage -Unusual pain or calf pain -Increased vaginal bleeding -Painful or difficulty urinating -Feelings of extreme sadness or anxiety after 2 weeks Goals to Promote Your Health * To prevent worsening of your condition and complications, please follow up with doctors as instructed. * To maintain your health at the optimal level, please stay well hydrated, eat a well balanced diet, and exercise regularly. Directions to Meet Your Goals Take your medications as prescribed Follow your dietary instruction Follow activity as directed Ensure plenty of rest for recovery Drink fluids for hydration Keep your appointments as scheduled Take your immunizations and boosters as scheduled If your symptoms worsen call your PCP, if no PCP go to Urgent Care Center or Emergency Room Smoking is Dangerous to Your Health. Avoid second hand smoke Call the 24-hour crisis hotline for domestic abuse at Charles Collazo MD R1 March 23, 2017 08:19 Hilda Cordova MD March 23, 2017 09:36
[2017-03-23] MEDS ORDERED: OXYC1TAB63 PO (08:31)
[2017-03-23 09:15] LABS: PHENCYCLIDINE URINE NEG (NEG)
[2017-03-23 09:17] LABS: BATH SALTS (MDPV) UR NEG (NEG); ECSTASY (MDMA) UR NEG (NEG); GABAPENTIN UR NEG (NEG); HEROIN (6-ACETYLMORPHINE) UR NEG (NEG); HYDROMORPHONE U NEG (NEG); K2 SPICE UR NEG (NEG); OBMETHADONE UR NEG (NEG); OXYCODONE (PERCODAN) NEG (NEG)
[2017-03-23 11:52] LABS: HCV RNA PCR LOGIU/ML 5.57 (())
== END 2017-03-23 13:22 | disposition home or self-care (01) | DRG 765 ==
LOC: HOBED 14:34 → H2EA 15:03 → OBSVTOIN 03-20 00:10 → H1EA 03-20 10:06
PROVIDERS: ADMIT Obstetrics & Gynecology; ATTEND Obstetrics & Gynecology
PROC: 10D00Z1 Extraction of Products of Conception, Low, Open Approach (ICD-10-PCS; principal; 2017-03-20)
DX: O41.03X0 Oligohydramnios, third trimester, not applicable or unspecified (principal); O99.324 Drug use complicating childbirth; O98.42 Viral hepatitis complicating childbirth; O32.1XX0 Maternal care for breech presentation, not applicable or unspecified; D64.9 Anemia, unspecified; Z3A.38 38 weeks gestation of pregnancy; Z37.0 Single live birth; O99.02 Anemia complicating childbirth; O34.211 Maternal care for low transverse scar from previous cesarean delivery; F11.10 Opioid abuse, uncomplicated; B19.20 Unspecified viral hepatitis C without hepatic coma
CPT/HCPCS: 80074; 80307; 81001; 82805; 85025; 86703; 86900; 86901; 87522; 88307; 90715; 93308; 99281; G0481; J0690; J1885; J2274; J2405; J2590; J2795; J7120